=== PATIENT | female | born 1965 | race Hispanic/Latino ===

== ENCOUNTER 2021-02-01 11:14 | Outpatient (CLI) | payer MEDICAID ==
--- NOTE | 2021-02-01 14:42 | XRay Report ---
LUMBAR SPINE 3 VIEWS 1222 INDICATION: BACK PAIN COMPARISON: None available. FINDINGS: Minimal scoliosis is seen. Moderate mid to lower facet arthritic changes are seen. Degenera tive changes are noted in the lower lumbar region with moderate disc space narrowing at L4-5 and prom inent narrowing at L5-S1. A trace of retrolisthesis is noted at both levels. No fractures are seen. A therosclerotic changes are noted. BILATERAL KNEES 6 VIEWS 1218 INDICATION: Knee pain COMPARISON: None available. FINDINGS: These could not be fully extended for the examination. No obvious fractures or dislocations are seen. On the right tricompartment degenerative changes are moderately prominent but most obvious medially. Mild medial joint space narrowing is seen. Mild genu varus is noted. The left knee shows p rominent medial degenerative changes with prominent joint space narrowing and genu varus. Mild to mod erate lateral and patellofemoral degenerative changes are seen. Small probable bilateral joint effusi ons are noted, more obvious on the left. Signer Name: Khang Wynn MD Signed: 02/01/2021 2:38 PM Workstation Name: [id number]
== END 2021-02-01 11:15 | disposition home or self-care (01) ==
LOC: XRAY 11:14
PROVIDERS: ATTEND Internal Medicine
DX: M17.0 Bilateral primary osteoarthritis of knee (principal); M41.87 Other forms of scoliosis, lumbosacral region; M41.86 Other forms of scoliosis, lumbar region
CPT/HCPCS: 72100